=== PATIENT | male | born 1930 | race Caucasian/White ===

== ENCOUNTER → 2017-06-29 | Outpatient (CLI) | payer OTHER | LOC: FIMAGING 08:21 | PROVIDERS: ATTEND Internal Medicine Gastroenterology | DX: K44.9 Diaphragmatic hernia without obstruction or gangrene (principal); K21.9 Gastro-esophageal reflux disease without esophagitis ==

== ENCOUNTER 2018-07-04 18:56 | Inpatient (IN) | payer OTHER ==
--- NOTE | 2018-07-04 19:05 | EDPHY ---
HPI/HX/ROS/PE/MDM Narrative: CHIEF COMPLAINT: Cardiac alert, chest pain. HISTORY OF PRESENT ILLNESS: This patient is an 88 year old male with history of diabetes arriving via EMS from home on a cardiac alert. 30 minutes prior to arrival, he began vomiting after a large dinner and simultaneously developed severe chest pain. He describes this as heavy, crushing pain through the center of his chest and to the left. He rates the discomfort between 7-9/10 in severity. EKG by EMS shows sinus bradycardia with ST elevation and reciprocal changes. He was hypertensive at 170/90. He denies history of prior [place]. EMS administered 324mg PO ASA and 2 doses of 0.4mg Nitro in transport. His is en route by private vehicle. HPI primarily obtained from EMS report. Patient states "please don't ask me again" and seems very uncomfortable. REVIEW OF SYSTEMS: A comprehensive 10 system review of systems is otherwise negative aside from elements mentioned in the history of present illness and medical decision making. PAST MEDICAL HISTORY: Diabetes (Metformin). Hypothyroid (levothyroxine). Also takes Gabapentin. SOCIAL HISTORY: Nonsmoker. . at bedside. VITAL SIGNS: Reviewed by me GENERAL: Elderly male. Alert. Vomitus is present on the patient's muller. Reports chest pain. HEENT: Atraumatic. Eyes: No icterus, no injection. Mouth: moist mucous membranes. No erythema or lesions. Neck: supple with no adenopathy. No JVD. LUNGS: Clear to auscultation bilaterally, no wheezes, rhonchi or rales. CARDIAC: Regular rate, somewhat slow, and regular rhythm, no rubs, murmurs or gallops. ABDOMEN: Soft, no abdominal tenderness to palpation, nondistended, bowel sounds normal. BACK: No CVA tenderness. EXTREMITIES: No trauma. No edema. Range of motion is normal throughout. NEURO: Alert and oriented, grossly nonfocal. SKIN: Warm and dry, no diaphoresis, no rash. PSYCHIATRIC: Normal mentation, no agitation. Portions of this note were transcribed by a medical historian. I personally performed a history, physical exam, medical decision making, and confirmed accuracy of information the transcribed note. ED Course: 18:55 Met EMS at bedside. 88 y/o male arrives on a cardiac alert for STEMI. Patient developed crushing chest pain and nausea 30 minutes prior to arrival around 18:20. 18:57 Dr. Bowen, medicaid nurse, and members of the cardiac catheterization team are en route. Plan for EKG, Chest x-ray, POC troponin, i-stat Chem8. Plan for additional labs including CBC, chemistries, coag panel. Plan to administer 250mg IV NS. 19:00 12-LEAD EKG: Please see the full report in [facility]. My interpretation: increasing ST elevation inferiorly (compared to EKG by EMS) with ST depression. Evidence of acute [place]. 19:[address] Bowen, medicaid nurse. He will take the patient to the clinical laboratory technologist on arrival. 19:01 X-ray at bedside. Second IV established. Patient insists he would like his of 58 years at bedside. She is on her way to the ED at this time. Chest x-ray demonstrates peribronchial thickening. No acute failure or wide mediastinum. 19:04 Reviewed i-stat. Glucose 177. Creatinine 1.1 19:09 POC troponin 0.01. Patient's is now at bedside. 19:20 Patient endorses frequent vomiting which is chronic for him and rhinorrhea each morning. He does not report any recent acute illness at this time when I ask about cough, cold, or fevers. 19:21 Dr. Bowen, medicaid nurse, at bedside. 19:34 Patient transferred to clinical laboratory technologist for cardiac catheterization under the care of Dr. Bowen. I spent a total of 40 minutes of critical care time in obtaining history, performing a physical exam, bedside monitoring of interventions, collecting and interpreting tests and discussion with consultants but not including time spent performing procedures. MDM: After history and physical examination, the differential for chest pain was considered, including but not limited to, myocardial ischemia, acute coronary syndrome, pulmonary embolus, chest wall pain, pleural inflammation and pulmonary infectious causes. - Data Points Imaging Results: Impression: 1. Bronchitis/airways disease. 2. No definite focal pneumonia or congestive heart failure. Dictated By: Johnny Torrez Imaging: I viewed and interpreted images myself Laboratory Results: Laboratory Results 07/04/18 18:56 07/04/18 18:56 Medications Given: Aspirin Buffered (Aspirin Ec) 325 mg PO DAILY JOESPH Stop: 01/01/19 08:59 Last Admin: 07/06/18 09:47 Dose: 325 mg Atorvastatin Calcium (Lipitor) 10 mg PO DAILY JOESPH Stop: 01/01/19 08:59 Last Admin: 07/06/18 09:46 Dose: 10 mg Carvedilol (Coreg) 3.125 mg PO BIDMEAL JOESPH Stop: 01/01/19 11:44 Last Admin: 07/06/18 09:46 Dose: 3.125 mg Clopidogrel Bisulfate (Plavix) 75 mg PO DAILY21 JOESPH Stop: 01/01/19 20:59 Last Admin: 07/05/18 21:30 Dose: 75 mg Gabapentin (Neurontin) 300 mg PO BID JOESPH Stop: 01/01/19 11:44 Last Admin: 07/06/18 09:47 Dose: 300 mg Levothyroxine Sodium (Synthroid) 75 mcg PO DAILY06 [facility] Stop: 01/01/19 11:44 Last Admin: 07/06/18 04:11 Dose: 75 mcg Nicotine (Nicoderm Cq) 14 mg TD DAILY JOESPH Stop: 01/01/19 13:14 Last Admin: 07/06/18 09:48 Dose: 14 mg Discontinued Medications Clopidogrel Bisulfate (Plavix) 600 mg PO ONCE ONE Stop: 07/04/18 20:32 Last Admin: 07/04/18 20:36 Dose: 600 mg Sodium Chloride (Ns) 1,000 mls @ 100 mls/hr IV CONT [facility] Stop: 07/05/18 06:44 Last Admin: 07/04/18 20:36 Dose: 1,000 mls Point of Care Test Results: Chemistry 07/04/18 07/04/18 19:04 18:59 POC Sodium 142 mEq/L mEq/L (135-145) POC Potassium 4.3 mEq/L mEq/L (3.3-5.0) POC Chloride 101 mEq/L mEq/L (97-110) POC BUN 29 mg/dL H mg/dL (7-23) POC Creatinine 1.1 mg/dL mg/dL (0.7-1.3) POC Glucose 179 mg/dL H mg/dL (70-100) POC Troponin I 0.01 ng/mL ng/mL (0.00-0.08) ISTAT H&H 07/04/18 19:04 POC Hgb 15.6 gm/dL gm/dL (13.7-17.5) POC Hct 46 % % (40-51) General Initial Vital Signs: Initial Vital Signs Heart Rate 49 L 07/04/18 19:00 Respiratory Rate 20 07/04/18 19:00 Blood Pressure 158/86 H 07/04/18 19:00 O2 Sat (%) 97 07/04/18 19:00 O2 Delivery Mode Nasal Cannula O2 (L/minute) 2 Allergies/Adverse Reactions: Penicillins Allergy (Verified 07/04/18 19:00) Sulfa (Sulfonamide Antibiotics) Allergy (Verified 07/04/18 19:00) Home Medications: Medication Instructions Recorded Acetaminophen [Tylenol ES 500 mg 1,000 mg PO TID PRN #60 tab 05/16/16 (*)] Gabapentin [Neurontin 300 MG (*)] 300 mg PO BID 07/04/18 Levothyroxine [Synthroid 75 mcg 75 mcg PO DAILY06 07/04/18 (*)] metFORMIN HCL [Glucophage 500 mg 500 mg PO BID 07/04/18 (*)] Departure - Departure Disposition: To OP Cath/Surgery Clinical Impression: STEMI (ST elevation myocardial infarction) Qualifiers: Involved coronary artery: other inferior wall coronary artery Qualified Code(s) : I21.19 - ST elevation (STEMI) myocardial infarction involving other coronary artery of inferior wall Chest pain Qualifiers: Chest pain type: chest pain due to myocardial ischemia Ischemic chest pain type : unspecified angina pectoris type Qualified Code(s): I25.9 - Chronic ischemic heart disease, unspecified Condition: Critical Report Scribed for: Annabelle Harry Report Scribed by: Joan Ocampo Date of Report: 07/04/18 Time of Report: 20:34
[2018-07-04 19:09] LABS: PLATELET COUNT 249 10^3/uL (150-400)
[2018-07-04 19:17] LABS: INR 0.95 (0.83-1.16); PROTIME(PATIENT) 12.9 SEC (12.0-15.0)
[2018-07-04] MEDS ORDERED: MIDAZOLAM 2 MG/2 ML VIAL ONE (19:22)
[2018-07-04] MEDS ORDERED: IOPAMIDOL (ISOVUE-370) 150 ML BTL IV ONE (19:22)
[2018-07-04] MEDS ORDERED: LIDOCAINE 1% 300 MG/30 ML SDV ONE (19:22)
[2018-07-04] MEDS ORDERED: fentaNYL 100 MCG/2 ML INJ ONE (19:22)
[2018-07-04] MEDS ORDERED: BIVALIRUDIN 250 MG/5 ML VIAL IV ONE (19:48)
[2018-07-04] MEDS ORDERED: ATROPINE SULFATE 1 MG/10 ML SYR ONE (19:56)
[2018-07-04] MEDS ORDERED: CLOPIDOGREL BISULFATE 75 MG TAB PO ONE (20:31)
[2018-07-04] MEDS ORDERED: CLOPIDOGREL BISULFATE 75 MG TAB ONE (20:31)
--- NOTE | 2018-07-04 20:33 | GHP ---
DATE OF ADMISSION: 07/04/2018 REASON FOR ADMISSION: Acute inferior ST-segment elevation myocardial infarction. HISTORY: Mr. Arroyo is an 88-year-old male with no prior cardiac history. He does have a cardiovascular risk profile consisting of a former smoking history and type 2 diabetes. He and his went out to lunch today. After returning home in the afternoon he began to feel poorly. Approximately an hour prior to his presentation to the hospital he developed severe nausea and diaphoresis. He had significant vomiting, followed by severe substernal chest discomfort. Based on his symptoms, his called 911 and he was transported to the emergency room at [facility]. His initial ECG demonstrates significant inferior ST-segment elevation with reciprocal changes in the early precordial leads. He continues to complain of significant chest discomfort. He has demonstrated a degree of bradycardia, but has not had any significant hypotension. PAST MEDICAL HISTORY: The past medical history includes type 2 diabetes with peripheral neuropathy, hypothyroidism, and osteoarthritis. PAST SURGICAL HISTORY: Previous total knee replacement. MEDICATIONS: His home medications consist of metformin, levothyroxine, and gabapentin. ALLERGIES: Penicillin and sulfa. FAMILY HISTORY: Noncontributory. SOCIAL HISTORY: He has a smoking history. He stopped approximately 13 years ago. He does not consume alcohol. He is and his is with him in the emergency room. They previously owned a local retail store. REVIEW OF SYSTEMS: Notable for chest discomfort, joint pain related to osteoarthritis. Otherwise a 10-point review is negative. PHYSICAL EXAMINATION: VITAL SIGNS: Heart rate 48 beats per minute with a probable junctional rhythm on telemetry. Blood pressure 106/82. O2 saturation 99% on 2 L/minute nasal cannula oxygen. GENERAL: This is a somewhat disheveled , elderly male who appears in moderate discomfort. He is alert and oriented x3. HEAD AND NECK: No scleral icterus. Mucous membranes moist. Carotid pulses 2+ without bruits. There is no JVD. CHEST: Lung lucas clear to auscultation. CARDIAC: Regular rate and rhythm with a normal S1 and S2. There is no murmur or gallop. ABDOMEN: Soft, nontender, nondistended, with normoactive bowel sounds. EXTREMITIES: 2+ pulses in all 4 extremities. No peripheral edema. ECG: His ECG demonstrates a probable junctional rhythm at 48 beats per minute. He has 2-[address]-segment elevation with reciprocal ST depression and T inversion in lead V2. LABORATORY STUDIES: His sodium is 142 with potassium 4.3, BUN 29, and creatinine 1.1. His CBC is normal. IMPRESSION: This is an 88-year-old male with a history of type 2 diabetes who presents with an acute inferior ST-segment elevation myocardial infarction. He is approximately 1 hour into this event. He has junctional bradycardia, but is otherwise stable. PLAN: Preparations are underway to take the patient emergently to the cardiac confectionery laboratory manager for diagnostic angiography and probable PCI of the culprit vessel. Further diagnostic and therapeutic decisions await the outcome of that study. He will require a hospital stay of greater than 2 midnights for management of his acute MO. /[id number]/MODL MTDD
--- NOTE | 2018-07-04 20:43 | PDPROPOC ---
Sedation Plan of Care Sedation Plan of Care: vital signs stable, mental status noted, patient educated of risks, benefits, alternatives, patient can tolerate sedation ASA Classification: ASA 2 Planned drugs: fentanyl, midazolam Mallampati Score: Class 1 Mallampati Reference Image: Patient passed 3-3-2 rule?: Yes
--- NOTE | 2018-07-04 20:43 | PDHPUP ---
History & Physical Update H&P update statement: This history and physical update is based on an assessment of the patient which was completed after admission or registration (within 24 hours), but prior to the surgery/procedure. H&P update: H&P reviewed & patient examined, no change in patient's condition since H&P completed
[2018-07-04] MEDS ORDERED: HYDROCODONE/APAP 5/325 TAB PO PRN (20:44)
[2018-07-04] MEDS ORDERED: NITROGLYCERIN 0.4 MG BTL SL PRN (20:44)
[2018-07-04] MEDS ORDERED: ONDANSETRON 4 MG/2 ML VIAL IVP PRN (20:44)
[2018-07-04] MEDS ORDERED: LORazepam 2 MG/ML INJ IVP PRN (20:44)
[2018-07-04] MEDS ORDERED: ACETAMINOPHEN 325 MG TAB PO PRN (20:44)
[2018-07-04] MEDS ORDERED: TEMAZEPAM 15 MG CAP PO PRN (20:44)
[2018-07-04] MEDS ORDERED: ATROPINE SULFATE 1 MG/10 ML SYR IVP PRN (20:44)
[2018-07-04] MEDS ORDERED: NS 1,000 ML IV SCH (20:45)
--- NOTE | 2018-07-04 21:04 | PDDXCAT ---
Diagnostic Cath Note - . Date: 07/04/18 Vehicle Modification Technician: Andrés Indication: other (Acute inferior STEMI) - Procedure Access: right groin Procedure: left heart catheterization, coronary angiography, left ventriculogram , other - Materials Left Heart Cath size: 6F Left Heart Cath materials: standard multipack (JL4, JR4, pigtail) - Findings-Left Heart Catheterization LM: Normal. LAD: Mid-LAD 50%; first diagonal with high-grade ostial disease and a mid- vessel stenosis of 70-80%. LCX: Mid-circumflex with a 40-50% stenosis. RCA: Proximal RCA with a > 95% stenosis with ROZINA-I flow. EDP: 22 mmHg LVEF: 45-50% Wall motion: Inferior hypokinesis. Complications: None Estimated blood loss: <50ml Closure method: Angioseal Assessment: 1) Acute inferior STEMI. 2) CAD as described above. 3) Successful PCI of the RCA using a single drug-coated stent. 4) Ischemic cardiomyopathy with mildly reduced LV systolic function. Intervention: Based on the patient's clinical presentation and diagnostic angiography, the decision was made to perform PCI of the RCA. The patient received intravenous Angiomax. A 6 Japanese JR-4 guide catheter was advanced to the RCA ostium. An Intuition guidewire was advanced to the distal RCA. Predilatation of the high- grade, proximal RCA lesion was performed using a 2.5 x 15 mm Emerge balloon. A 3.0 x 20 mm Synergy stent was advanced into position and was deployed at high pressure. Final angiograms demonstrated 0% residual stenosis and ROZINA-III flow. Patient Problems: Problems Problem Status Onset STEMI (ST elevation myocardial infarction) Acute Lumbar compression fracture Acute
--- NOTE | 2018-07-04 23:21 | CPEKG ---
Test Reason : OPEN Blood Pressure : / mmHG Vent. Rate : 048 BPM Atrial Rate : 048 BPM P-R Int : 100 ms QRS Dur : 094 ms QT Int : 451 ms P-R-T Axes : -62 031 092 degrees QTc Int : 403 ms Sinus or ectopic atrial bradycardia Short IN interval Probable left atrial enlargement Inferoposterior infarct, acute (RCA) Lateral leads are also involved Probable RV involvement, suggest recording right precordial leads Acute DC Confirmed by Annabelle Harry ([id number]) on 07/04/2018 11:21:03 PM Referred By: Confirmed By:Annabelle Harry
--- NOTE | 2018-07-04 23:22 | CPEKG ---
Test Reason : OPEN Blood Pressure : / mmHG Vent. Rate : 048 BPM Atrial Rate : 048 BPM P-R Int : 103 ms QRS Dur : 100 ms QT Int : 476 ms P-R-T Axes : -64 026 098 degrees QTc Int : 426 ms Sinus or ectopic atrial bradycardia Short SC interval Inferoposterior infarct, acute (RCA) Probable RV involvement, suggest recording right precordial leads Acute NC Confirmed by Annabelle Harry ([id number]) on 07/04/2018 11:22:09 PM Referred By: Confirmed By:Annabelle Harry
[2018-07-05 03:26] LABS: CREATINE KINASE 576 IU/L (0-224)
--- NOTE | 2018-07-05 09:43 | PDMN ---
Medical Necessity Medical necessity: MCG M230 PA 2 days: acute inferior STEMI emergent cardiac cath with PCI to RCA,
[2018-07-05] MEDS: ATORVASTATIN CALCIUM 10 MG TAB PO SCH (10:08)
[2018-07-05] MEDS: ASPIRIN EC 325 MG TAB PO SCH (10:08)
[2018-07-05 11:49] LABS: CREATINE KINASE 628 IU/L (0-224)
--- NOTE | 2018-07-05 11:49 | PDCARPN ---
Cardiology Progress Note Assessment/Plan: 88 y/o male admitted last p.m. with inferior STEMI. Coronary Artery Disease: He underwent PCI of a totally occluded proximal RCA with placement of a single drug-coated stent. The LAD and circumflex demonstrate moderate irregularities. His first diagonal branch has high-grade disease but may too small for PCI. No further chest pain. Inferior ST segment elevation resolved. Has inferior Q waves. - Aggressive secondary prevention. Statin started at a low dose. His lipid panel shows an LDL cholesterol of 75. Goal is less than 70. Nonsustained Ventricular Tachycardia: Overnight, he had multiple short bursts of VT up to 7 beats in length He did not notice these. - Will start beta randy cautiously at a low dose given his moderate bradycardia. Disposition: He will be transferred to PCU. He was encouraged to ambulate. - On discharge, his follow up will be through the [facility] system. CD copies of his cardiac cath and echocardiogram will be provided. 07/05/18 11:46 Subjective: No chest pain. Reviewed/Discussed With: family Objective: Vital Signs (8 Hrs) Temp Pulse Resp BP Pulse Ox 07/05/18 10:00 57 L 20 132/71 H 95 07/05/18 09:00 51 L 11 L 106/64 95 07/05/18 08:00 36.4 C 46 L 10 L 111/62 94 07/05/18 07:00 53 L 12 115/63 92 07/05/18 06:00 51 L 13 124/78 H 90 L 07/05/18 05:00 55 L 12 119/60 100 07/05/18 04:00 36.7 C 58 L 12 118/64 100 Intake/Output (24 Hrs) 07/04/18 07/05/18 07/06/18 05:59 05:59 05:59 Intake Total 1400 500 Output Total 200 Balance 1400 300 Intake: Oral (ml) 500 IV Intake (ml) 1000 IV Infused (ml) 400 Output: Urine (ml) 200 Urinal 200 Other: Weight 60 kg Number of Voids Incontinence 1 Urinal 1 Result Diagrams: 07/04/18 18:56 07/04/18 18:56 Cardiac Labs: Cardiac Lab Results (72 Hrs) 07/05/18 03:05 CK-MB (CK-2) Fraction 52.50 H Troponin I 17.200 H - Physical Exam Constitutional: no apparent distress Eyes: anicteric sclera Ears, Nose, Mouth, Throat: moist mucous membranes Cardiovascular: regular rate and rhythm, no murmurs, no gallops Respiratory: clear to auscultate bilat Gastrointestinal: normoactive bowel sounds, no tenderness, no masses Skin: no edema Neurologic: AAOx3 Psychiatric: not anxious ICD10 Worksheet Patient Problems: Problems Problem Status Onset Lumbar compression fracture Acute STEMI (ST elevation myocardial infarction) Acute
--- NOTE | 2018-07-05 12:47 | CPEKG ---
Test Reason : OPEN Blood Pressure : / mmHG Vent. Rate : 055 BPM Atrial Rate : 055 BPM P-R Int : 159 ms QRS Dur : 099 ms QT Int : 469 ms P-R-T Axes : 014 -22 -17 degrees QTc Int : 449 ms Sinus rhythm Inferior infarct, old Resolution of diffuse ST elevation and ST T-wave abnormalities since July 04, 2018 Confirmed by Chiki Oneill ([id number]) on 07/05/2018 12:46:54 PM Referred By: Confirmed By:Chiki Oneill
--- NOTE | 2018-07-05 12:48 | CPEKG ---
Test Reason : OPEN Blood Pressure : / mmHG Vent. Rate : 058 BPM Atrial Rate : 058 BPM P-R Int : 168 ms QRS Dur : 098 ms QT Int : 471 ms P-R-T Axes : 021 -21 -26 degrees QTc Int : 463 ms Sinus rhythm Inferior infarct, old Abnormal R wave progression in the precordial leads. No significant change from July 05, 2018, 10:03 Confirmed by Chiki Oneill ([id number]) on 07/05/2018 12:48:08 PM Referred By: Confirmed By:Chiki Oneill
[2018-07-05] MEDS: NICOTINE 14 MG/24 HR PATCH TD SCH (13:24)
[2018-07-05] MEDS: CARVEDILOL 3.125 MG TAB PO SCH ×3 (13:24→18:05)
[2018-07-05] MEDS: LEVOTHYROXINE 75 MCG TAB PO SCH (13:24)
[2018-07-05] MEDS: GABAPENTIN 300 MG CAP PO SCH ×2 (13:24→21:29)
--- NOTE | 2018-07-05 16:44 | ASMTCASEMG ---
Living Arrangements What is your living Answers: With Spouse arrangement? Who do you live with? Type Of Residence What kind of residence do Answers: House you live in? Discharge Plan Comments Coordination Status Comments Notes: Patient is an 88yo male who presents with an acute inferior ST - segment elevation ID. Patient will be taken to the catholic priest emergently for diagnostic angiography and probable PCI of the culprit vessel. No therapies ordered at this time. D/C plan TBD. CM will follow. Date Signed: 07/05/2018 04:44 PM Electronically Signed By:Brianda Granados LCSW
--- NOTE | 2018-07-05 17:10 | ECHO ---
[email or web address] [address] [address] Main: [phone] Fax: Transthoracic Echocardiogram Name: Juliet OSMAN MR#: [id number] Study Date: 07/05/2018 Study Time: 09:37 AM Date of : 1930 Age: 88 year(s) Height: 167.6 cm (66 in.) Weight: 61.24 kg (135 lb.) BSA: 1.69 m2 Gender: Male Examination: Echo Indication: inferior STEMI Image Quality: Adequate Contrast: Requested by: Juan Bowen BP: 108 mmHg/56 mmHg Heart Rate: Rhythm: Indication: inferior STEMI Procedure Staff [employer] Instructor: Elida Bennett [facility] Reading Physician: Juan Bowen MD Requesting Provider: Conclusions: Normal size left ventricle. Mild concentric LV hypertrophy. EF is 64 %. Subtle basal inferior hypokinesis. Diastolic function is indeterminate. There is mild thickening of the mitral valve leaflets. Mild mitral annular calcification. Trivial mitral valve regurgitation. Aortic sclerosis is present. There is no significant aortic valve regurgitation. Mild tricuspid regurgitation is present. Right ventricular systolic pressure measures 28mmHg. No pericardial effusion. No prior study for comarison. Measurements: Chambers Valvular Assessment AV/MV Valvular Assessment TV/PV Normal Normal Normal Name Value Range Name Value Range Name Value Range Ao Suzie (MM): 3.4 cm (2.2 cm-3.7 AV Vmax: 1.58 m/s (1 m/s-1.7 TR Vmax: 2.39 mm/s ( - ) cm) m/s) TR PGmax: 23 mmHg ( - ) IVSd (2D): 1.3 cm (0.6 cm-1.1 AV maxP mmHg ( - ) syst. PAP: 28 mmHg ( - ) cm) LVOT Vmax: 0.86 m/s (0.7 m/s-1.1 PV Vmax: 0.98 m/s (0.6 m/s-0.9 LVDd (2D): 3.7 cm (4.2 cm-5.9 m/s) m/s) cm) TEX (Vmax): 1.9 cm2 ( - ) PV PGmax: 4 mmHg ( - ) LVDs (2D): 2.6 cm (2.1 cm-4 MV E Vmax: 0.80 m/s ( - ) cm) MV A Vmax: 0.62 m/s ( - ) LVPWd (2D): 1.0 cm (0.6 cm-1 MV E/A: 1.29 ( - ) cm) LVOTd 2.1 cm 2.1 cm mm LVEF (BP): 64 % (>=55 %) Patient: Juliet OSMAN Study Date: 07/05/2018 Page 1 of 2 09:37 AM RVDd(2D): 3.6 cm (1.9 cm-3.8 cmmm) Continued Measurements: Chambers Valvular Assessment AV/MV Valvular Assessment TV/PV Name Value Name Value Name Value LADs: 3.9 cm MV DecTime: 292 m/s CVP (est.): 5 mmHg LADs Lon.1 cm MV E/E' Septal: 20.90 LA Area: 21.5 cm2 MV E/E' Lateral: 9.80 LA Volume: 57 ml LA Volume Index: 33.7 ml/m2 TAPSE: 2.3 cm RA Area: 16.5 cm2 Additional Vessels Name Value Ao Ascendin.6 cm Findings: Left Ventricle: Normal size left ventricle. Mild concentric LV hypertrophy. Normal global systolic LV function. EF is 64 %. Subtle basal inferior hypokinesis. Diastolic function is indeterminate. Right Ventricle: Normal size right ventricle. Normal RV function. Left Atrium: The left atirum is borderline dilated. Right Atrium: The right atrium is borderline dilated. Mitral Valve: There is mild thickening of the mitral valve leaflets. Mild mitral annular calcification. Trivial mitral valve regurgitation. No mitral stenosis is present. Aortic Valve: The aortic valve is tri-leaflet and functions normally. Aortic sclerosis is present. There is no significant aortic valve regurgitation. No aortic valve stenosis is present. Tricuspid Valve: The tricuspid valve is normal in appearance and function. Mild tricuspid regurgitation is present. Right ventricular systolic pressure measures 28mmHg. The pulmonary artery pressure is normal. Pulmonic Valve: Pulmonary valve not well visualized. Trivial pulmonic valve regurgitation. Aorta: Normal size aortic root measuring 3.4 cm. Normal size ascending aorta measuring 3.6 cm. IVC: The IVC is normal sized. There is greater melo 50% respiratory excursion. Pericardium: No pericardial effusion. (No Signature Object) Patient: Juliet OSMAN Study Date: 07/05/2018 Page 2 of 2 09:37 AM [id number]
[2018-07-05 19:28] LABS: CREATINE KINASE 518 IU/L (0-224)
[2018-07-05] MEDS: CLOPIDOGREL BISULFATE 75 MG TAB PO SCH (21:30)
[2018-07-06] MEDS: LEVOTHYROXINE 75 MCG TAB PO SCH (04:11)
--- NOTE | 2018-07-06 08:14 | SOAPPROG ---
[facility] Progress Note Assessment/Plan: Assessment: 88 y/o man admitted two days ago with inferior STEMI and immediate cath showed > 90% RCA lesion which got JAY to RCA. Also had 50-70% LAD and 50% LCX. Echo yesterday with LVEF 64%, mild LVH, mild TR and estimated normal PA pressures. Other PMH: NIDDM and some memory issues. Lives in house in [place] with his . He was transferred out of ICU to Tele yesterday. Hasn't really walked in hallways much and has memory issues as does not remember info even five minutes after I re-explain. Denies recurrent CP, cold sweat or shortness of breath like he had day of acute inferior DE. PLAN: 1)no change in current meds. 2)ambulate with PT assistance today. 3)tele watching for bradyarrhythmias and/or VT 4)ecg sunday 5)am labs (CBC, CMP, NT-pro BNP and troponin) 6)decided whether to discharge to home or SNF for Sunday or Sunday. He is a frail 88 y/o man. 07/06/18 08:09 Subjective: he is in bed. Hasn't ambulated yet. Denies CP, rest shortness of breath, palpitations, abdominal pain or near syncope. Objective: Vital Signs Temp Pulse Resp BP Pulse Ox 36.6 C 54 L 18 91/53 L 94 07/06/18 07:39 07/06/18 07:39 07/06/18 07:39 07/06/18 07:39 07/06/18 07:39 07/05/18 07/06/18 07/07/18 05:59 05:59 05:59 Intake Total 1400 1540 0 Output Total 1700 Balance 1400 -160 0 PT 12.9 SEC (12.0-15.0) 07/04/18 18:56 INR 0.95 (0.83-1.16) 07/04/18 18:56 Physical Exam - Physical Exam General Appearance: alert, no apparent distress EENT: normal ENT inspection Neck: full range of motion Respiratory: lungs clear Cardiac/Chest: regular rate, rhythm, bradycardia, systolic murmur, No gallop (1/ 6 NICKI heard), No JVD Peripheral Pulses: 2+: carotid (R), carotid (L), femoral (R), femoral (L), dorsalis-pedis (R), dorsalis-pedis (L) Abdomen: non-tender, No guarding, No rebound Skin: warm/dry Extremities: No pedal edema Neuro/Psych: alert ICD10 Worksheet Patient Problems: Problems Problem Status Onset STEMI (ST elevation myocardial infarction) Acute Lumbar compression fracture Acute
[2018-07-06] MEDS: CARVEDILOL 3.125 MG TAB PO SCH ×2 (09:46→18:06)
[2018-07-06] MEDS: ATORVASTATIN CALCIUM 10 MG TAB PO SCH (09:46)
[2018-07-06] MEDS: ASPIRIN EC 325 MG TAB PO SCH (09:47)
[2018-07-06] MEDS: GABAPENTIN 300 MG CAP PO SCH ×2 (09:47→20:39)
[2018-07-06] MEDS: NICOTINE 14 MG/24 HR PATCH TD SCH (09:48)
--- NOTE | 2018-07-06 12:19 | ASMTCMCOM ---
CM Note CM Note Notes: 07/06/2018 Case Management Note Discussed case with PT. PT is recommending home care. Met w/pt and to discuss. Faxed referrals to [facility] and [facility]. [facility] has a dementia program that would be beneficial for pt. Faxed updates to [facility]. Case Management d/c poc: Home Care pending acceptance. Case Management to follow. Date Signed: 07/06/2018 12:19 PM Electronically Signed By:Estephania Grewal RN
[2018-07-06] MEDS: metFORMIN HCL 500 MG TAB PO SCH (18:05)
[2018-07-06] MEDS: CLOPIDOGREL BISULFATE 75 MG TAB PO SCH (20:39)
[2018-07-07] MEDS: LEVOTHYROXINE 75 MCG TAB PO SCH (04:01)
[2018-07-07 07:53] VITALS: BP 102/73
[2018-07-07] MEDS: NICOTINE 14 MG/24 HR PATCH TD SCH (09:06)
[2018-07-07] MEDS: metFORMIN HCL 500 MG TAB PO SCH (09:07)
[2018-07-07] MEDS: ATORVASTATIN CALCIUM 10 MG TAB PO SCH (09:07)
[2018-07-07] MEDS: ASPIRIN EC 325 MG TAB PO SCH (09:08)
[2018-07-07] MEDS: GABAPENTIN 300 MG CAP PO SCH (09:08)
[2018-07-07] MEDS: CARVEDILOL 3.125 MG TAB PO SCH (09:08)
--- NOTE | 2018-07-07 09:31 | SOAPPROG ---
[facility] Progress Note Assessment/Plan: Assessment: 88 y/o man admitted three days ago with inferior STEMI and immediate cath showed >90% RCA lesion which got JAY to RCA. Also had 50-70% LAD and 50% LCX. Echo yesterday with LVEF 64%, mild LVH, mild TR and estimated normal PA pressures. Other PMH: NIDDM and some memory issues. Lives in house in [place] with his . He is doing well ambulating hallways with no angina or AREVALO or syncope. Telemetry okay. PLAN: 1)no change in current meds. 2)discharge home today with home health care 3)follow up [place] PCP and/or cardiology in 7-10days. discharge summary dictated. 07/07/18 09:29 Objective: Vital Signs Temp Pulse Resp BP Pulse Ox 36.9 C 68 185 H 102/73 94 07/07/18 07:52 07/07/18 09:08 07/07/18 07:52 07/07/18 09:08 07/07/18 07:52 Laboratory Results 07/07/18 03:38 07/07/18 03:38 07/06/18 07/07/18 07/08/18 05:59 05:59 05:59 Intake Total 1540 150 Output Total 1700 100 Balance -160 50 PT 12.9 SEC (12.0-15.0) 07/04/18 18:56 INR 0.95 (0.83-1.16) 07/04/18 18:56 ICD10 Worksheet Patient Problems: Problems Problem Status Onset Chest pain Acute STEMI (ST elevation myocardial infarction) Acute Lumbar compression fracture Acute
--- NOTE | 2018-07-07 09:41 | PDIAF ---
- Diagnosis Diagnosis: s/p inferior NM heart attack s/p right coronary stent (07/04/18) Code Status: Full Code - Medication Management Discharge Medications: electronically signed and located in the Home Medication List. PICC Care - Routine: N/A - Orders Services needed: Registered Nurse, Physical Therapy, Occupational Therapy Diet Recommendation: no restrictions on diet Diet Texture: Regular Texture Diet Additional Instructions: 1)ambulate with walker and help of or home health PT 2)call tomorrow and make appt with [facility] PCP and/or cardiology at [place] for appointment in 7-10 days. 3)make sure fill new prescriptions and take Aspirin and Plavix uninterrupted. 4)please check right groin cath site and make sure no bleeding or abnormal swelling. - Follow Up Care Current Providers and Referrals: Patient,NotPresent [Unknown] - As per Instructions
--- NOTE | 2018-07-07 20:02 | ASMTLACE ---
LACE Length of stay for Answers: 3 days current admission Acuity / Level of Answers: Yes Care: Did the patient have an inpatient admission? Comorbidities - select Answers: Diabetes (uncontrolled or all that apply controlled) Other Notes: Hypothyroid # of Emergency department Answers: 1-2 visits in the last 6 months Score: 9 Date Signed: 07/07/2018 08:01 PM Electronically Signed By:Samreen Ramírez RN
--- NOTE | 2018-07-07 20:14 | ASMTDCNOTE ---
Case Management Discharge Discharge Order Complete? Answers: Yes Patient to Obtain Answers: via Family Medications Transportation Arranged Answers: Family/Friends Transport will Pick (Date 07/07/2018 12:00 AM & Time) EMTALA Complete Answers: No Notes: N/A Case Management Transport Answers: No Notes: N/A Form Complete Faxed Final Orders Answers: Yes Notes: Sent manually and via [employer]; confirmed receipt with [facility] Agency/Facility Transfer Answers: Yes Notes: Sent manually and via Report Printed & Faxed to [employer]; confirmed Receiving Agency receipt with [facility] Family Notified Answers: Yes Notes: at bedside Discharge Comments Notes: Reviewed chart, spoke with Dr. Nugent and DINA Degroot regarding discharge plan of care, pt's progress. Per Dr. Nugent, pt to discharge home today with home health care (RN/PT/OT services). Dr. Nugent prefers CM use [facility] secondary to their specialization in dementia. Met with pt and his to discuss potential needs. agreeable to home care and homebound status. Address and phone number verified. Call placed to [facility], on-call RN at [facility] xt 1. Per [facility], able to accept pt with a start of care for Sunday07/08/18. Discharge orders and paperwork manually faxed to d/t [employer] downtime; confirmed receipt with [facility]. Orders resent via [employer] this evening. IM signed, copy placed in chart. Encouraged pt's to call [place] with an update on Sunday07/08/18 regarding home care orders and follow up. verbalized understanding. CM available for any further issues or concerns. Discharge Plan: Home with [facility] (RN/PT/OT services) Date Signed: 07/07/2018 08:13 PM Electronically Signed By:Samreen Ramírez RN
--- NOTE | 2018-07-07 20:14 | ASDISCHSUM ---
Discharge Information Plan Status:Home with Home Health Medically Cleared to Leave:07/06/2018 Discharge Date:07/07/2018 12:07 PM CM D/C Disposition:Home Health Service [facility] D[facility]C [facility] Discharge Date:07/07/2018 11:00 AM Transportation at D/C:Family Discharge Delay Reason: Follow-Up Date:07/07/2018 11:00 AM Discharge Slot:2 - 12:01 pm - 18:00 pm Final Diagnosis:Inferior IL, vomiting Placement Information Referral Type:*Retirement/SNF Referral ID:[id number] Provider Name: Address 1: Phone Number: Address 2: Fax Number: City: Selection Factors:Patient/Family Choice State: Referral Type:*Home Health Care Services Referral ID:[id number] Provider Name:[facility] Address 1:[address] [address] Phone Number: Address 2: Fax Number: [facility]:[place] Selection Factors:Insurance Driven; Network Provider; Patient/Family Choice State:[place] Patient Contact Information Contact Name:MINH Relationship: Address:[address] Work Phone: City:[facility] Phone: [facility]/Zip Code:[place] [address] Email: Financial Information Financial Class:Medicare Advantage Plans Primary Plan Desc:[employer] ADV IP Primary Plan Number:[id number] Secondary Plan Desc: Secondary Plan Number: Assessment Information LACE LACE Length of stay for Answers: 3 days current admission Acuity / Level of Answers: Yes Care: Did the patient have an inpatient admission? Comorbidities - select Answers: Diabetes (uncontrolled or all that apply controlled) Other Notes: Hypothyroid # of Emergency department Answers: 1-2 visits in the last 6 months Score: 9 Date Signed: 07/07/2018 08:01 PM Electronically Signed By:Samreen Ramírez RN [facility] Initial CM Assessment Living Arrangements What is your living Answers: With Spouse arrangement? Who do you live with? Type Of Residence What kind of residence do Answers: House you live in? Discharge Plan Comments Coordination Status Comments Notes: Patient is an 88yo male who presents with an acute inferior ST - segment elevation IL. Patient will be taken to the solder making laborer emergently for diagnostic angiography and probable PCI of the culprit vessel. No therapies ordered at this time. D/C plan TBD. CM will follow. Date Signed: 07/05/2018 04:44 PM Electronically Signed By:Brianda Granados LCSW [facility] CM Progress Note CM Note CM Note Notes: 07/06/2018 Case Management Note Discussed case with PT. PT is recommending home care. Met w/pt and to discuss. Faxed referrals to [facility] and [facility]. [facility] has a dementia program that would be beneficial for pt. Faxed updates to [facility]. Case Management d/c poc: Home Care pending acceptance. Case Management to follow. Date Signed: 07/06/2018 12:19 PM Electronically Signed By:Estephania Grewal RN Case Management Discharge Plan Note Case Management Discharge Discharge Order Complete? Answers: Yes Patient to Obtain Answers: via Family Medications Transportation Arranged Answers: Family/Friends Transport will Pick (Date 07/07/2018 12:00 AM & Time) DENNIS Hardy Answers: No Notes: N/A Case Management Transport Answers: No Notes: N/A Form Complete Faxed Final Orders Answers: Yes Notes: Sent manually and via [employer]; confirmed receipt with [facility] Agency/Facility Transfer Answers: Yes Notes: Sent manually and via Report Printed & Faxed to [employer]; confirmed Receiving Agency receipt with [facility] Family Notified Answers: Yes Notes: at bedside Discharge Comments Notes: Reviewed chart, spoke with Dr. Nugent and Mikayla RN regarding discharge plan of care, pt's progress. Per Dr. Nugent, pt to discharge home today with home health care (RN/PT/OT services). Dr. Nugent prefers [facility] use [facility] to their specialization in dementia. Met with pt and his to discuss potential needs. agreeable to home care and homebound status. Address and phone number verified. Call placed to [facility], on-call RN at [facility] xt 1. Per [facility], able to accept pt with a start of care for Sunday07/08/18. Discharge orders and paperwork manually faxed to d/t [employer] downtime; confirmed receipt with [facility]. Orders resent via [employer] this evening. IM signed, copy placed in chart. Encouraged pt's to call [place] with an update on Sunday07/08/18 regarding home care orders and follow up. verbalized understanding. CM available for any further issues or concerns. Discharge Plan: Home with [facility] (RN/PT/OT services) Date Signed: 07/07/2018 08:13 PM Electronically Signed By:Samreen Ramírez RN Intervention Information Intervention Type:*IM-Signed Date of Service:07/07/2018 08:00 PM Patient Type:Inpatient Staff Member:DINA Ramírez, Samreen Hours: Discipline: Severity: Comment:
--- NOTE | 2018-07-07 21:43 | GDS ---
DISCHARGE DIAGNOSES: 1. Status post acute inferior ST-elevation myocardial infarction, status post drug-eluting stent to the right coronary artery. 2. Hyperlipidemia. 3. Memory issues. PROCEDURES PERFORMED: 1. Heart catheterization with greater than 95% proximal RCA lesion, which was stented open with a 3. 0 x 20 mm Synergy stent. He also had 40% to 50% mid left circumflex lesion and a 50% and 75% LAD les ion, which were left alone. His left ventricular ejection fraction is 45% to 50%, with an left ventr icular end-diastolic pressure of 22. 2. Echocardiogram: Left ventricular ejection fraction 64% with mild left ventricular hypertrophy, m ild mitral regurgitation, with an estimated pulmonary artery systolic pressure of 28 mmHg. HOSPITAL COURSE PER PROBLEMS: Acute inferior ST-elevation AK: The patient had symptoms of chest anna n, and chills and extreme tiredness. In the emergency room, his EKG demonstrated ST-elevation in the inferior leads. He was brought acutely to the [facility] lab[facility] and noted to have a 95% proximal RCA lesion, which was stented open. He went to the intensive care unit for 1 day and then was on telemetry for 2 days with relatively uneventful post AK course. His troponin peaked at 30. He did have some harjinder arrhythmias on telemetry. He ambulated with Physical Therapy, and they felt he was safe to go home w [facility] and home PT and OT following. He was started on aspirin, Plavix, low-dose Coreg, and Lipitor. He will be followed up closely in 7-10 days in the [facility]. DISCHARGE MEDICATIONS: Atorvastatin 10 mg per day, aspirin 325 mg per day, carvedilol 3.125 mg b.i.d ., Plavix 75 mg per day, Neurontin 300 mg b.i.d., Synthroid 75 mcg per day, metformin 500 mg b.i.d. DISCHARGE LABS: White count 8.6, hematocrit 39, platelets 157,000, MCV 96. Sodium 139, potassium 4. 5, chloride 107, bicarb 26, BUN 19, creatinine 0.9, glucose 110. Troponin today 7.1. Note, peak tro ponin 29.8. LDL cholesterol 75. DISCHARGE VITALS: Heart rate 68, blood pressure 102/73, and weight 60 kg. FOLLOWUP INSTRUCTIONS: Patient will follow up in the [facility], either with his PCP a nd/or Cardiology in 7-10 days. Home health care with a home nurse, OT, and PT has been arranged for the patient, and will be seeing him upon discharge. Copy requested to: [place] [address] /[id number]/MODL
== END 2018-07-07 12:07 | disposition home health service (06) | DRG 247 ==
LOC: EDUNIT# → F2N 21:00 → F2W 07-05 17:35
PROVIDERS: ADMIT Internal Medicine Interventional Cardiology; ATTEND Internal Medicine Interventional Cardiology
PROC: 027034Z Dilation of Coronary Artery, One Artery with Drug-eluting Intraluminal Device, Percutaneous Approach (ICD-10-PCS; principal; 2018-07-04)
DX: I21.19 ST elevation (STEMI) myocardial infarction involving other coronary artery of inferior wall (principal); E78.5 Hyperlipidemia, unspecified; E11.40 Type 2 diabetes mellitus with diabetic neuropathy, unspecified; E03.9 Hypothyroidism, unspecified; Z79.84 Long term (current) use of oral hypoglycemic drugs; Z87.891 Personal history of nicotine dependence; I25.10 Atherosclerotic heart disease of native coronary artery without angina pectoris
CPT/HCPCS: 82435-PO; 82565-PO; 82947-PO; 84132-PO; 84295-PO; 84484-PO; 84520-PO; 85014-PO; 97116-GP; 97162-GP; 97530-GP; C1725; C1760; C1769; C1874; C1887; C9606; J0461; J0583; J1644; J2250; J2405; J3010; Q9967